=== PATIENT | female | born 1950 | race Caucasian/White ===

== ENCOUNTER 2021-07-27 19:23 | Emergency (ER) | payer MEDICARE ==
--- NOTE | 2021-07-27 20:21 | XRAY Report ---
PROCEDURE: Chest 1 View X-Ray INDICATIONS: dizzy TECHNIQUE: One view of the chest was acquired. COMPARISON: None FINDINGS: Surgical changes and devices: None. Lungs and pleura: No pleural effusions or pneumothorax. Lungs are clear. Mediastinum: Mediastinal contours appear normal. Heart size is enlarged. Bones and chest wall: No suspicious bony lesions. Overlying soft tissues appear unremarkable. IMPRESSION: No acute pulmonary process. Reviewed by: Tomeka Burnett MD on 07/27/2021 8:20 PM PDT Approved by: Tomeka Burnett MD on 07/27/2021 8:20 PM PDT Station ID: [id number]
--- NOTE | 2021-07-27 20:22 | CT Report ---
PROCEDURE: HEAD WO INDICATIONS: headache/HTN TECHNIQUE: Noncontrast 4.5 mm thick angled axial sections acquired from the foramen magnum to the vertex. For r adiation dose reduction, the following was used: automated exposure control, adjustment of mA and/or kV according to patient size. COMPARISON: None. FINDINGS: Image quality: Excellent. The ventricular system and cortical sulci demonstrate atrophy, consistent for patient's stated age. There are areas of hypodensity in the periventricular and subcortical white matter. There is no acut e intra or extra-axial fluid collection. No acute hemorrhage, mass lesion or midline shift. Brainst em is unremarkable. Globes are symmetrical. Sinuses are aerated. Osseous structures are intact. . IMPRESSION: 1. No acute intracranial process. 2. Moderate atrophy and chronic microvascular ischemic changes. Reviewed by: Tomeka Burnett MD on 07/27/2021 8:21 PM PDT Approved by: Tomeka Burnett MD on 07/27/2021 8:21 PM PDT Station ID: [id number]
[2021-07-27] MEDS ORDERED: LABETALOL 20 MG/4 ML SYRINGE IVP STA (20:31)
[2021-07-27 20:46] LABS: BASOPHILS % (AUTO) 0.7 %; EOSINOPHILS # (AUTO) 0.2 10^3/uL (0.0-0.7); EOSINOPHILS % (AUTO) 3.3 %; HCT - HEMATOCRIT 46.5 % (37.0-47.0); HGB - HEMOGLOBIN 15.6 g/dL (12.0-16.0); LYMPHOCYTES # (AUTO) 1.8 10^3/uL (1.5-3.5); LYMPHOCYTES % (AUTO) 29.6 %; MEAN CORPUSCULAR HEMOGLOBIN 30.1 pg (27.0-31.0); MEAN CORPUSCULAR HGB CONC 33.5 g/dL (32.0-36.0); MEAN CORPUSCULAR VOLUME 89.8 fL (81.0-99.0); MEAN PLATELET VOLUME 9.1 fL (7.9-10.8); MONOCYTES # (AUTO) 0.6 10^3/uL (0.0-1.0); MONOCYTES % (AUTO) 9.6 %; NEUTROPHILS # (AUTO) 3.5 10^3/uL (1.5-6.6); NEUTROPHILS % (AUTO) 56.5 %; PLT - PLATELET COUNT 288 10^3/uL (130-450); RED BLOOD COUNT 5.18 10^6/uL (4.20-5.40); WHITE BLOOD COUNT 6.2 x10^3/uL (4.8-10.8)
[2021-07-27 21:01] LABS: ALBUMIN 4.6 g/dL (3.2-5.5); ALBUMIN/GLOBULIN RATIO 1.3 (1.0-2.2); BILIRUBIN,TOTAL 0.9 mg/dL (0.2-1.0); CALCIUM 9.5 mg/dL (8.5-10.3); CREATININE 0.8 mg/dL (0.4-1.0); POTASSIUM 4.2 mmol/L (3.5-5.0); TOTAL PROTEIN 8.1 g/dL (6.7-8.2)
[2021-07-27] MEDS ORDERED: amLODIPine 5 MG TABLET PO STA (21:12)
--- NOTE | 2021-07-27 21:45 | ED Physician Documentation ---
History of Present Illness - Stated complaint Stated Complaint: DIZZY/HBP - Chief complaint Chief Complaint: General - History obtained from History obtained from: Patient - Additonal information Additional information: Patient with no significant past medical history presenting for evaluation of dizziness and lightheadedness that has been intermittent for the last week along with a mild frontal headache. She went to the walk-in clinic for evaluation and was noted to have significantly elevated blood pressure readings. Patient reports going to a dental appointment a few years ago and had high blood pressure at that time but thought it was related to running late. She has not previously been diagnosed with hypertension. She denies visual disturbances, balance issues, chest pain, difficulty breathing, focal weakness, abdominal pain or vomiting. Review of Systems Eyes: reports: Discharge. denies: Decreased vision Nose: denies: Congestion Cardiac: denies: Chest pain / pressure Respiratory: denies: Dyspnea GI: denies: Vomiting : denies: Dysuria Musculoskeletal: denies: Neck pain, Back pain Neurologic: reports: Headache. denies: Focal weakness, Syncope PD PAST MEDICAL HISTORY - Present Medications Home Medications: Ambulatory Orders Medication Instructions Recorded Confirmed amLODIPine [Norvasc] 10 mg PO DAILY #30 tablet 07/27/21 - Allergies Allergies/Adverse Reactions: Allergies Allergy/AdvReac Type Severity Reaction Status Date / Time Sulfa (Sulfonamide AdvReac Hives Verified 07/27/21 19:43 Antibiotics) PD ED PE NORMAL - General General: Alert and oriented X 3, No acute distress, Well developed/nourished - HEENT HEENT: Atraumatic, PERRL, EOMI - Neck Neck: Supple, no meningeal sign - Cardiac Cardiac: RRR, No murmur, Strong equal pulses - Respiratory Respiratory: No respiratory distress, Clear bilaterally - Abdomen Abdomen: Normal bowel sounds, Soft, Non tender, Non distended - Back Back: No CVA TTP - Derm Derm: Warm and dry - Extremities Extremities: No edema - Neuro Neuro: Alert and oriented X 3, insurance assistant 2-12 intact, No motor deficit, No sensory deficit, Normal speech, Other (Normal [id number], rapid alternating movements, normal gait) - Psych Psych: Normal mood Results - Vitals Vitals: Vital Signs - 24 hr 07/27/21 07/27/21 07/27/21 19:35 20:30 20:42 Temperature 36.5 C Heart Rate 86 86 72 Respiratory 14 20 17 Rate Blood Pressure 265/130 H 236/121 H 190/115 H O2 Saturation 97 97 99 07/27/21 07/27/21 07/27/21 20:45 20:51 21:20 Temperature Heart Rate 72 74 69 Respiratory 20 15 17 Rate Blood Pressure 212/122 H 197/117 H 212/117 H O2 Saturation 99 97 99 07/27/21 07/27/21 21:30 22:06 Temperature Heart Rate 68 68 Respiratory 14 32 H Rate Blood Pressure 210/110 H 207/113 H O2 Saturation 99 98 Oxygen O2 Source Room air - EKG (time done) 1957 Rate: Rate (enter#) (79) Rhythm: NSR Intervals: No: Prolonged QT Ischemia: No: ST elevation c/w ischemia - Labs Labs: Laboratory Tests 07/27/21 07/27/21 07/27/21 20:20 20:20 20:20 WBC 6.2 RBC 5.18 Hgb 15.6 Hct 46.5 MCV 89.8 MCH 30.1 MCHC 33.5 RDW 12.0 Plt Count 288 MPV 9.1 Neut # (Auto) 3.5 Lymph # (Auto) 1.8 [place] # (Auto) 0.6 Eos # (Auto) 0.2 Baso # (Auto) 0.0 Absolute Nucleated RBC 0.00 Nucleated RBC % 0.0 Sodium 137 Potassium 4.2 Chloride 98 L Carbon Dioxide 31 Anion Gap 8.0 BUN 22 H Creatinine 0.8 Estimated GFR (MDRD) 71 L Glucose 101 H Calcium 9.5 Total Bilirubin 0.9 AST 31 ALT 26 Alkaline Phosphatase 85 Troponin I High Sens 7.7 Total Protein 8.1 Albumin 4.6 Globulin 3.5 Albumin/Globulin Ratio 1.3 PD MEDICAL DECISION MAKING - ED course Complexity details: reviewed results, re-evaluated patient, d/w patient ED course: Patient presenting for evaluation with severely elevated blood pressure mable dings. On exam, patient has no focal deficits and has no abnormal findings on cerebellar testing.CT scan was obtained and is negative for acute intracranial bleed.Labs also reviewed without significant abnormalities. No signs of cardiac ischemia. Patient does not appear to be in heart failure.No signs of hypertensive emergency. Patient was given a dose of labetalol with ~20% Lowering of blood pressure. Patient to be started on amlodipine. She is aware of need for close follow-up with primary care doctor. She is aware of strict return precautions.She is asymptomatic at time of discharge. Departure - Departure Disposition: 01 Home, Self Care Clinical Impression: Hypertensive urgency Condition: Stable Instructions: ED Hypertension New Begin Tx Follow-Up: Gomez Batista MD [Physician No Access] - Prescriptions: amLODIPine [Norvasc] 10 mg PO DAILY #30 tablet Comments: You were evaluated for significantly elevated blood pressure. This is related to a condition called hypertension. We have checked labs as well as a CT of your brain and chest xray with no significant abnormalities. We have started to lower Your blood pressure. We do not want to lower your blood pressure too quickly and it should slowly lower over the next several days.I will send a prescription for blood pressure medication called amlodipine to the [facility] pharmacy in [place]. Please moss picker this prescription and start taking it every day as prescribed. You do also need close follow-up with your primary care doctor. I have included the name of her primary care doctor you can call tomorrow to try and establish care with. You can also try at the walk-in clinic and should be seen within the next week. If you have any worsening symptoms such as headache, weakness, dizziness, chest pain or trouble breathing please return to the emergency department. Discharge Date/Time: 07/27/21 22:10
[2021-07-27 22:06] VITALS: BP 207/113
== END 2021-07-27 22:10 | disposition home or self-care (01) ==
LOC: ED 19:23
DX: I16.0 Hypertensive urgency (principal)
CPT/HCPCS: 36415; 70450; 71045; 80053; 84484; 85025; 93005; 96374; 99284; A9270

== ENCOUNTER 2022-03-21 11:17 | Outpatient (CLI) | payer MEDICARE ==
[2022-03-21 18:48] LABS: CHOL/HDL RATIO 2.4 (<4.4); CHOLESTEROL 200 mg/dL; HDL CHOLESTEROL 82 mg/dL; TRIGLYCERIDES 36 mg/dL
[2022-03-21 18:49] LABS: THYROID STIMULATING HORMONE 8.2 uIU/mL (0.34-5.60)
[2022-03-21 19:49] LABS: FREE T4 (FREE THYROXINE) 0.62 ng/dL (0.58-1.64)
== END 2022-03-21 11:18 | disposition home or self-care (01) ==
LOC: LAB.N 11:17
PROVIDERS: ATTEND Nurse Practitioner Family
DX: I10 Essential (primary) hypertension (principal); Z13.220 Encounter for screening for lipoid disorders
CPT/HCPCS: 36415; 80061; 83721; 84439; 84443

== ENCOUNTER 2022-04-04 15:04 | Outpatient (CLI) | payer MEDICARE | END 2022-04-04 15:05 | disposition home or self-care (01) | LOC: DI 15:04 | PROVIDERS: ATTEND Nurse Practitioner Family | DX: I87.8 Other specified disorders of veins (principal); I10 Essential (primary) hypertension; Q21.12 Patent foramen ovale | CPT/HCPCS: 93306 ==

== ENCOUNTER 2022-07-27 11:17 | Outpatient (CLI) | payer MEDICARE | END 2022-07-27 23:59 | disposition short-term general hospital (02) | LOC: EMS 11:17 | DX: S00.83XA Contusion of other part of head, initial encounter (principal); S70.11XA Contusion of right thigh, initial encounter; M25.551 Pain in right hip; M25.531 Pain in right wrist; W17.89XA Other fall from one level to another, initial encounter; Y93.89 Activity, other specified; Y92.71 Barn as the place of occurrence of the external cause | CPT/HCPCS: A0425; A0427 ==

== ENCOUNTER 2022-09-05 08:00 | Outpatient (CLI) | payer MEDICARE ==
--- NOTE | 2022-09-05 18:18 | XRAY Report ---
PROCEDURE: Wrist 3 View RT INDICATIONS: RIGHT WRIST PAIN TECHNIQUE: 3 views of the wrist were acquired. COMPARISON: 07/27/2022 FINDINGS: Bones: Healing impacted distal radius fracture with increased fracture lucency indicate prior study. Soft tissues: No suspicious soft tissue calcifications or masses. IMPRESSION: Healing impacted distal radius fracture. No new fractures. Reviewed by: Tee Lopez MD on 09/05/2022 6:16 PM PDT Approved by: Tee Lopez MD on 09/05/2022 6:16 PM PDT Station ID: [id number]
== END 2022-09-05 23:59 | disposition home or self-care (01) ==
LOC: DI.WOS 08:00
PROVIDERS: ATTEND Orthopaedic Surgery
DX: S52.501D Unspecified fracture of the lower end of right radius, subsequent encounter for closed fracture with routine healing (principal)

== ENCOUNTER 2023-10-30 10:15 | Day surgery (SDC) | payer MEDICARE ==
[2023-10-30] MEDS: LACTATED RINGERS 1,000 ML IV ONE (10:29)
--- NOTE | 2023-10-30 12:48 | ANESTHESIA ---
Pre-Anesthesia VS, & Labs - Diagnosis pos cologuard - Procedure colonoscopy Vital Signs: Temp Pulse Resp BP Pulse Ox O2 Flow Rate 36.3 C L 77 14 174/84 H 99 10/30/23 10:50 10/30/23 10:50 10/30/23 10:50 10/30/23 10:50 10/30/23 10:50 Height: 5 ft 4 in Weight (kg): 55 kg Body Mass Index: 20.8 BMI Classification: Normal - NPO >8 hours - Is Patient ?: No Home Medications and Allergies Home Medications: Ambulatory Orders Losartan Potassium 62.5 mg PO HS 10/29/23 Losartan Potassium 62.5 mg PO HS 10/29/23 Allergies/Adverse Reactions: Allergies Allergy/AdvReac Type Severity Reaction Status Date / Time Sulfa (Sulfonamide Allergy Intermediate Hives Verified 10/30/23 11:05 Antibiotics) amlodipine AdvReac Mild Edema Verified 10/30/23 11:05 Anes History & Medical History - Anesthetic History Anesthesia Complications: reports: No previous complications Family history of Anesthesia Complications: Denies Family history of Malignant Hyperthermia: Denies - Medical History Cardiovascular: reports: Hypertension Pulmonary: reports: None Gastrointestinal: reports: None Urinary: reports: None Musculoskeletal: reports: None Endocrine/Autoimmune: reports: None Skin: reports: Rosacea Exam General: Alert, Oriented x3, Cooperative Dental: WNL Mouth Openin Fingerbreadth Neck Mobility: Normal Mallampati classification: I Thyromental Distance: 4-6 cm Respiratory: Lungs clear Cardiovascular: Regular rate Plan Anesthesia Type: General, Total IV Consent for Procedure(s) Verified and Reviewed: Yes Code Status: Attempt Resuscitation ASA classification: 2-Mild systemic disease Is this case an emergency?: No
[2023-10-30] MEDS ORDERED: PROPOFOL 500 MG/50 ML 500 MG/50 ML VIAL ONE (13:36)
[2023-10-30] MEDS: LACTATED RINGERS 750 ML IV ONE (13:53)
[2023-10-30 14:04] VITALS: BP 154/82
--- NOTE | 2023-10-30 14:21 | ANESTHESIA POST OP EVALUATION ---
Anesthesia Post Eval - Post Anesthesia Eval Vitals: Last Vital Signs Temp 36.9 C 10/30/23 13:53 Pulse 71 10/30/23 14:18 Resp 18 10/30/23 14:18 BP 154/82 H 10/30/23 14:18 Pulse Ox 98 10/30/23 14:18 O2 Flow Rate CV Function Including HR & BP: Stable Pain Control: Satisfactory Nausea & Vomiting: Negative Mental Status: Baseline Respiratory Status: Airway Patent Hydration Status: Satisfactory Anesthesia Complications: None
[2023-10-30 14:26] VITALS: O2SAT 98
== END 2023-10-30 10:16 | disposition home or self-care (01) ==
LOC: SDS 10:15
PROVIDERS: ATTEND Surgery
DX: Z12.11 Encounter for screening for malignant neoplasm of colon (principal); R19.5 Other fecal abnormalities; K62.89 Other specified diseases of anus and rectum
CPT/HCPCS: G0121; J7120